=== PATIENT | female | born 1995 ===

== ENCOUNTER 2017-04-17 20:18 | Emergency (ER) | payer MEDICAID ==
[2017-04-17 20:33] VITALS: BP 115/82; PULSE 83; RESP 16; TEMP 99.3; O2SAT 95
[2017-04-17] MEDS ORDERED: Promethazine/Cod 6.25mg-10mg/5ml Syr UD PO STA (21:03)
[2017-04-17] MEDS ORDERED: Albuterol-Ipratrop 3 mg / 0.5 (3 ml) UD IH STA (21:03)
--- NOTE | 2017-04-17 21:04 | ED PDOC ---
Arrival/HPI - General Chief Complaint: Cough, Cold, Congestion Time Seen by Provider: 04/17/17 21:03 Historian: Patient, Parent (mother) - History of Present Illness Narrative History of Present Illness (Text): 04/17/17 21:04 This 22 yo female presents to this ED with her mother c/o cough, nasal congestion, and ear pain x 2 days. Patient noted a mild sore throat. Patient denies cp, sob, fever, recent travel or sick contact. Time/Duration: Other (2 days) Context: Home Past Medical History - Provider Review Nursing Documentation Reviewed: Yes - Psychiatric Hx Substance Use: No Family/Social History - Physician Review Nursing Documentation Reviewed: Yes Family/Social History: Other (non-contributory) Smoking Status: Heavy Smoker > 10 Cigarettes Daily Hx Alcohol Use: No Hx Substance Use: No Allergies/Home Meds Allergies/Adverse Reactions: Allergies No Known Allergies Allergy (Verified 04/17/17 20:33) Review of Systems - Review of Systems Constitutional: Normal. absent: Fatigue, Weight Change, Fevers Eyes: Normal ENT: Sore Throat, Rhinorrhea. absent: Epistaxis Respiratory: Cough. absent: SOB Cardiovascular: Normal Gastrointestinal: Normal. absent: Abdominal Pain, Nausea, Vomiting Genitourinary Female: Normal. absent: Dysuria, Frequency, Hematuria, Vaginal Bleeding Musculoskeletal: Normal. absent: Back Pain Skin: Normal. absent: Rash, Pruritis Neurological: Normal. absent: Headache, Dizziness, Focal Weakness Endocrine: Normal Hemo/Lymphatic: Normal Psychiatric: Normal Physical Exam Vital Signs Temp Pulse Resp BP Pulse Ox 04/17/17 20:30 99.3 F 83 16 115/82 95 Temperature: Afebrile Blood Pressure: Normal Pulse: Regular Respiratory Rate: Normal Appearance: Positive for: Well-Appearing, Non-Toxic, Comfortable Pain Distress: None Mental Status: Positive for: Alert and Oriented X 3 - Systems Exam Head: Present: Atraumatic, Normocephalic Pupils: Present: PERRL Extroacular Muscles: Present: EOMI Conjunctiva: Present: Normal Mouth: Present: Moist Mucous Membranes Neck: Present: Normal Range of Motion Respiratory/Chest: Present: Clear to Auscultation, Good Air Exchange. No: Respiratory Distress, Accessory Muscle Use, Wheezes, Decreased Breath Sounds, Rales, Retracting, Rhonchi, Tachypneic Cardiovascular: Present: Regular Rate and Rhythm, Normal S1, S2. No: Murmurs Abdomen: Present: Normal Bowel Sounds. No: Tenderness, Distention, Peritoneal Signs Back: Present: Normal Inspection Upper Extremity: Present: Normal Inspection. No: Cyanosis, Edema Lower Extremity: Present: Normal Inspection. No: Edema Neurological: Present: GCS=15, CN II-XII Intact, Speech Normal, Motor Func Grossly Intact, Normal Sensory Function, Normal Cerebellar Funct, Gait Normal Skin: Present: Warm, Dry, Normal Color. No: Rashes Psychiatric: Present: Alert, Oriented x 3, Normal Insight, Normal Concentration Medical Decision Making ED Course and Treatment: 04/17/17 21:18 I reviewed the benefits vs risk of taking Decadron IM. She understood Decadron could cause AVN, osteoporosis, DM, glaucoma, allergies. Patient and mother insisted to have this medication. 04/17/17 22:12 Re-evaluation. Patient feels better. Discussed results and plan with patient who expresses understanding. All questions answered and there is agreement with the plan to discharge home with instructions. Patient stable for discharge. Return if symptoms persist or worse Lungs CTA b/l, no wheezing or rhonchi. 04/17/17 22:13 Smoking Cessation Counseling: The patient was counseled as to the multiple risks to his/her health from continued use of tobacco products. It was explained that continuing to smoke may lead to multiple short and skilled nursing negative health consequences, including but not limited to mouth/esophageal/lung cancer, COPD, and heart disease. She states she understands these risks, and also understands the options and resources available to her to help him/her stop smoking. Nicotine replacement therapy, local hotlines, and local resources were discussed as viable options for helping her stop her tobacco use. The total time spent counseling the patient regarding tobacco cessation was 10 minutes. Re-evaluation Time: 22:12 Reassessment Condition: Re-examined, Improved - Lab Interpretations I have reviewed the lab results: Yes Interpretation: No clinic. lab abnormalty (POC urine was negative) - Medication Orders Current Medication Orders: Discontinued Medications Albuterol/Ipratropium (Duoneb 3 Mg/0.5 Mg (3 Ml) Ud) 6 ml IH STAT STA Stop: 04/17/17 21:04 Last Admin: 04/17/17 21:30 Dose: 6 ml Dexamethasone (Decadron Inj) 10 mg IM STAT STA Stop: 04/17/17 21:04 Last Admin: 04/17/17 21:30 Dose: 10 mg Promethazine HCl/Codeine (Phenergan/Codeine Oral Syrup) 5 ml PO STAT STA Stop: 04/17/17 21:04 Last Admin: 04/17/17 21:30 Dose: 5 ml Disposition/Present on Arrival - Present on Arrival Any Indicators Present on Arrival: No History of DVT/PE: No History of Uncontrolled Diabetes: No Urinary Catheter: No History of Decub. Ulcer: No History Surgical Site Infection Following: None - Disposition Have Diagnosis and Disposition been Completed?: Yes Diagnosis: Acute bronchitis, Tobacco abuse Disposition: HOME/ ROUTINE Disposition Time: 22:13 Patient Plan: Discharge Condition: GOOD Discharge Instructions (ExitCare): How to Stop Smoking (ED), Acute Bronchitis ( ED), How to Quit Using Smokeless Tobacco (ED) Additional Instructions: Call private doctor for follow up visit in 1-2 days. Take medication as instructed. Return to emergency if symptoms worsen. QUIT SMOKING. Prescriptions: Albuterol HFA [Ventolin HFA 90 mcg/actuation (8 g)] 2 puff IH [id number] PRN #120 puff PRN Reason: Shortness Of Breath Azithromycin [Z-Nhan] 250 mg PO DAILY #6 tab Promethazine [Phenergan Syrup] 5 ml PO Q4H PRN #180 ml PRN Reason: Cough Referrals: PCP,NO [Primary Care Provider] - Follow up with primary [facility] [Outside] - Follow up with primary [facility] [Outside] - Follow up with primary Forms: [employer] ([place]), WORK NOTE
== END 2017-04-17 22:36 | disposition home or self-care (01) ==
LOC: ED 20:18
DX: J20.9 Acute bronchitis, unspecified (principal); Z72.0 Tobacco use
CPT/HCPCS: 96372; 99283; J1100

== ENCOUNTER 2017-11-24 18:40 | Emergency (ER) | payer MEDICAID ==
[2017-11-24 19:26] VITALS: TEMP 99.4; O2SAT 98
[2017-11-24] MEDS ORDERED: Sodium Chloride 0.9% 1,000 ML IV STA (19:33)
--- NOTE | 2017-11-24 19:41 | ED PDOC ---
Arrival/HPI <Shaw Sethi - Last Filed: 11/25/17 00:28> - General Historian: Patient - History of Present Illness Time/Duration: Other (last night) Symptom Onset: Sudden Symptom Course: Intermittent Quality: Cramping Severity Level: 4 <Dina Wade - Last Filed: 11/25/17 09:03> - General Chief Complaint: Abdominal Pain Time Seen by Provider: 11/24/17 18:44 - History of Present Illness Narrative History of Present Illness (Text): 11/24/17 19:38 22-year-old female presents today with epigastric and periumbilical abdominal pain that started last night after eating pasta and shrimp. Patient complaining of nausea no vomiting or diarrhea. Patient states the pain is crampy and intermittent. Patient denies radiation of pain to the back. Patient denies any urinary symptoms. Patient denies vaginal bleeding or vaginal discharge. Patient denies fevers or chills. No medications have been taken for pain at home. Patient denies prior abdominal surgeries. Denies dizziness or weakness. No other complaints (Dina Wade) Past Medical History - Provider Review Nursing Documentation Reviewed: Yes - Travel History Have you recently traveled outside [place] w/in the past 3 mons?: No - Tetanus Immunization Tetanus Immunization: Unknown - Cardiac Hx Cardiac Disorders: No - Pulmonary Hx Respiratory Disorders: No - Neurological Hx Neurological Disorder: No - HEENT Hx HEENT Disorder: Yes Other/Comment: HEARING DEFICIT - Renal Hx Renal Disorder: No - Endocrine/Metabolic Hx Endocrine Disorders: No - Hematological/Oncological Hx Blood Disorders: No - Integumentary Hx Dermatological Disorder: No - Musculoskeletal/Rheumatological Hx Musculoskeletal Disorders: No - Gastrointestinal Hx Gastrointestinal Disorders: No - Genitourinary/Gynecological Hx Genitourinary Disorders: Yes Other/Comment: AB - Psychiatric Hx Psychophysiologic Disorder: No Hx Substance Use: Yes (CANNABIS) - Surgical History Other/Comment: AB <Dina Wade - Last Filed: 11/25/17 09:03> Family/Social History - Physician Review Nursing Documentation Reviewed: Yes Family/Social History: Unknown Family HX Smoking Status: Heavy Smoker > 10 Cigarettes Daily Hx Alcohol Use: Yes Frequency of alcohol use: Socially Hx Substance Use: Yes (CANNABIS) <Dina Wade - Last Filed: 11/25/17 09:03> Allergies/Home Meds <Shaw Sethi - Last Filed: 11/25/17 00:28> <Dina Wade - Last Filed: 11/25/17 09:03> Allergies/Adverse Reactions: Allergies No Known Allergies Allergy (Verified 11/24/17 19:11) Home Medications: Home Meds Medication Instructions Recorded Confirmed No Known Home Med 11/24/17 11/24/17 Review of Systems - Review of Systems Constitutional: absent: Fatigue, Fevers Respiratory: absent: SOB, Cough Cardiovascular: absent: Chest Pain, Palpitations Gastrointestinal: Abdominal Pain, Nausea. absent: Constipation, Diarrhea, Vomiting Genitourinary Female: absent: Dysuria, Frequency, Hematuria, Vaginal Discharge Musculoskeletal: absent: Arthralgias, Back Pain, Neck Pain Skin: absent: Rash, Pruritis Neurological: absent: Headache, Dizziness Psychiatric: absent: Anxiety, Depression, Suicidal Ideation <Dina Wade - Last Filed: 11/25/17 09:03> Physical Exam Vital Signs Reviewed: Yes Temperature: Afebrile Blood Pressure: Normal Pulse: Regular Respiratory Rate: Normal Appearance: Positive for: Well-Appearing, Non-Toxic, Comfortable Pain Distress: None Mental Status: Positive for: Alert and Oriented X 3 - Systems Exam Head: Present: Atraumatic Mouth: Present: Moist Mucous Membranes Neck: Present: Normal Range of Motion Respiratory/Chest: Present: Clear to Auscultation, Good Air Exchange. No: Respiratory Distress, Accessory Muscle Use Cardiovascular: Present: Regular Rate and Rhythm, Normal S1, S2. No: Murmurs Abdomen: Present: Tenderness (minimal epigastric and periumbilical tenderness). No: Distention, Peritoneal Signs, Rebound, Guarding Back: Present: Normal Inspection. No: CVA Tenderness, Midline Tenderness, Paraspinal Tenderness Upper Extremity: Present: Normal ROM Lower Extremity: Present: Normal ROM Neurological: Present: GCS=15, Speech Normal Skin: Present: Warm, Dry, Normal Color. No: Rashes Psychiatric: Present: Alert, Oriented x 3 <Dina Wade - Last Filed: 11/25/17 09:03> Vital Signs Temp Pulse Resp BP Pulse Ox 11/25/17 00:29 72 18 119/77 98 11/24/17 19:12 99.4 F 77 16 121/78 98 Medical Decision Making - Lab Interpretations I have reviewed the lab results: Yes <Shaw Sethi - Last Filed: 11/25/17 00:28> <Dina Wade - Last Filed: 11/25/17 09:03> ED Course and Treatment: 11/25/17 00:17 Pt refuses to stay for CT scan results. States she does not want to wait for CT results and wants to go home. Pt will sign out against medical advice. Leaving Against Medical Advice (AMA): The patient is choosing to leave against medical advice. I have personally explained to the patient that choosing to do so may result in permanent bodily harm or . I have discussed at great length that without further evaluation and monitoring there may be unforeseen circumstances and/or deterioration causing permanent bodily harm or as a result of their choice. The patient is alert, oriented, and shows the mental capacity to make clear decisions regarding the patients health care at this time. The patient continues to wish to leave against medical advice. In light of the patients decision to leave against medical advice, patient is aware of the importance to following up as instructed. The patient has been advised that they should return to the emergency room immediately if they change their mind at any time, or if their condition begins to change or worsen in any way.. 11/25/17 00:28 CT Abdomen and Pelvis shows: Lung bases: Unremarkable. No mass. No consolidation. ABDOMEN: Liver: Unremarkable. No mass. Gallbladder and bile ducts: Unremarkable. No calcified stones. No ductal dilation. Pancreas: Unremarkable. No mass. No ductal dilation. Spleen: Unremarkable. No splenomegaly. Adrenals: Unremarkable. No mass. Kidneys and ureters: Unremarkable. No solid mass. No hydronephrosis. Stomach and bowel: Unremarkable. No obstruction. No mucosal thickening. Appendix: No findings to suggest acute appendicitis. Normal appendix. PELVIS: Bladder: Unremarkable. No mass. Reproductive: Unremarkable as visualized. Low-density structure in the left pelvis measuring 1.2 cm probably an involuting ovarian cyst or follicle. ABDOMEN and PELVIS: Intraperitoneal space: There is a small amount of free pelvic fluid present. No free air. Bones/joints: No acute fracture. No dislocation. Soft tissues: Unremarkable. Vasculature: Unremarkable. No abdominal aortic aneurysm. Lymph nodes: Unremarkable. No enlarged lymph nodes. IMPRESSION: Small pelvic free fluid. Otherwise, unremarkable CT of the abdomen and pelvis. ( Shaw Sethi) 11/24/17 19:40 Patient is nontoxic well appearing with stable vital signs presenting with epigastric and periumbilical abdominal pain CBC CMP Amylase Lipase Urinalysis: gc/chlaymdia; pending; pt refused prophylactic treatment. Patient without any vaginal discharge on vaginal examination. CAT scan: 11/24/17 20:33 case signed out to dr. sethi pending labs/ct/UA and re-evaluation and disposition; (Dina Wade) - Lab Interpretations Lab Results: 11/24/17 20:13 11/24/17 20:13 Lab Results 11/24/17 20:13: WBC 7.0, RBC 4.43, Hgb 12.4, Hct 39.0, MCV 88.0, MCH 28.0, MCHC 31.8, RDW 13.8, Plt Count 370, MPV 8.3, Gran % 68.3 H, Lymph % (Auto) 23.9, [place] % (Auto) 5.0, Eos % (Auto) 2.4, Baso % (Auto) 0.4, Gran # 4.77, Lymph # ( Auto) 1.7, [place] # (Auto) 0.4, Eos # (Auto) 0.2, Baso # (Auto) 0.03 11/24/17 20:13: Sodium 139, Potassium 4.0, Chloride 105, Carbon Dioxide 27, Anion Gap 11, BUN 12, Creatinine 0.8, Est GFR ( Amer) > 60, Est GFR (Non- Af Amer) > 60, Random Glucose 99, Calcium 9.4, Total Bilirubin 0.3, AST 16, ALT 9, Alkaline Phosphatase 79, Total Protein 7.2, Albumin 3.7, Globulin 3.6, Albumin/Globulin Ratio 1.0 L, Amylase 70, Lipase 38 11/24/17 20:13: Urine Color Yellow, Urine Appearance Clear, Urine pH 6.0, Ur Specific [place] 1.025, Urine Protein Negative, Urine Glucose (UA) Negative, Urine Ketones Trace H, Urine Blood Negative, Urine Nitrate Negative, Urine Bilirubin Negative, Urine Urobilinogen 0.2, Ur Leukocyte Esterase Negative - RAD Interpretation Radiology Orders: 11/24/17 19:32 ABD & PELVIS IV CONTRAST ONLY [CT] Stat - Medication Orders Current Medication Orders: Discontinued Medications Famotidine (Pepcid) 20 mg IVP STAT STA Stop: 11/24/17 19:34 Last Admin: 11/24/17 20:20 Dose: 20 mg IVP Administration Document 11/24/17 20:20 SS (Rec: 11/24/17 20:21 SS [id number]) Charges for Administration # of IVP Administrations 1 Sodium Chloride (Sodium Chloride 0.9%) 1,000 mls @ 999 mls/hr IV .Q1H1M STA Stop: 11/24/17 20:33 Last Admin: 11/24/17 20:21 Dose: 999 mls/hr eMAR Start Stop Document 11/24/17 20:21 SS (Rec: 11/24/17 20:21 SS [id number]) Intravenous Solution Start Date 11/24/17 Start Time 20:21 End Date 11/24/17 End time 21:21 Total Infusion Time 60 Disposition/Present on Arrival <Shaw Sethi - Last Filed: 11/25/17 00:28> - Present on Arrival Any Indicators Present on Arrival: No History of DVT/PE: No History of Uncontrolled Diabetes: No Urinary Catheter: No History of Decub. Ulcer: No History Surgical Site Infection Following: None - Disposition Have Diagnosis and Disposition been Completed?: Yes Disposition Time: 12:15 Patient Plan: Other (AMA) <Dina Wade - Last Filed: 11/25/17 09:03> - Disposition Diagnosis: Abdominal pain Disposition: AGAINST MEDICAL ADVICE Condition: UNKNOWN Referrals: Venkat Mariscal, DNP, [employer] [Primary Care Provider] - Follow up with primary Forms: [employer] ([place]), WORK NOTE
[2017-11-24 20:29] LABS: BASO # 0.03 K/mm3 (0.0-2.0); BASO % 0.4 % (0.0-3.0); EOS # 0.2 (0.0-0.7); EOS % 2.4 % (1.5-5.0); GRAN # 4.77 (1.4-6.5); GRAN % 68.3 % (50.0-68.0); HEMOGLOBIN 12.4 g/dL (12.0-16.0); LYMPH # 1.7 (1.2-3.4); LYMPH % 23.9 % (22.0-35.0); MEAN CORPUSCULAR HGB CONC 31.8 g/dl (31.0-37.0); MEAN PLATELET VOLUME 8.3 fl (7.0-11.0); MONO # 0.4 (0.1-0.6); RBC 4.43 10^6/uL (3.5-6.1); RED CELL DISTRIBUTION WIDTH 13.8 % (11.5-14.5)
[2017-11-24 20:31] LABS: URINE APPEARANCE CLEAR (CLEAR); URINE BILIRUBIN NEGATIVE (NEGATIVE); URINE BLOOD NEGATIVE (NEGATIVE); URINE COLOR YELLOW (YELLOW); URINE GLUCOSE (UA) NEGATIVE (NEGATIVE); URINE LEUKOCYTE ESTERASE NEGATIVE Leu/uL (NEGATIVE); URINE PROTEIN NEGATIVE mg/dL (<30 mg/dL); URINE UROBILINOGEN 0.2 E.U./dL (<1 E.U./dL)
[2017-11-24 20:35] LABS: ALBUMIN 3.7 g/dL (3.0-4.8); ALT/SGPT 9 U/L (7-56); AMYLASE 70 U/L (35-125); AST/SGOT 16 U/L (14-36); BLOOD UREA NITROGEN 12 mg/dL (7-21); CALCIUM 9.4 mg/dL (8.4-10.5); GFR AFRICAN-AMERICAN > 60; GFR NON-AFRICAN AMERICAN > 60; LIPASE 38 U/L (23-300)
[2017-11-24] MEDS ORDERED: Iohexol 350 MG/100 ML VIAL ONE (22:49)
--- NOTE | 2017-11-25 00:26 | CT ---
EXAM: CT Abdomen and Pelvis With Intravenous Contrast CLINICAL HISTORY: 22 years old, female; Pain; Abdominal pain; Localized; Other: Mid abdominal pain; Additional info: Abd pain TECHNIQUE: Axial computed tomography images of the abdomen and pelvis with intravenous contrast. All CT scans at this facility use one or more dose reduction techniques, viz.: automated exposure control; ma/kV adjustment per patient size (including targeted exams where dose is matched to indication; i.e. head); or iterative reconstruction technique. Coronal and sagittal reformatted images were created and reviewed. CONTRAST: 94 mL of omnipaque 350 administered intravenously. COMPARISON: No relevant prior studies available. FINDINGS: Lung bases: Unremarkable. No mass. No consolidation. ABDOMEN: Liver: Unremarkable. No mass. Gallbladder and bile ducts: Unremarkable. No calcified stones. No ductal dilation. Pancreas: Unremarkable. No mass. No ductal dilation. Spleen: Unremarkable. No splenomegaly. Adrenals: Unremarkable. No mass. Kidneys and ureters: Unremarkable. No solid mass. No hydronephrosis. Stomach and bowel: Unremarkable. No obstruction. No mucosal thickening. Appendix: No findings to suggest acute appendicitis. Normal appendix. PELVIS: Bladder: Unremarkable. No mass. Reproductive: Unremarkable as visualized. Low-density structure in the left pelvis measuring 1.2 cm probably an involuting ovarian cyst or follicle. ABDOMEN and PELVIS: Intraperitoneal space: There is a small amount of free pelvic fluid present. No free air. Bones/joints: No acute fracture. No dislocation. Soft tissues: Unremarkable. Vasculature: Unremarkable. No abdominal aortic aneurysm. Lymph nodes: Unremarkable. No enlarged lymph nodes. IMPRESSION: Small pelvic free fluid. Otherwise, unremarkable CT of the abdomen and pelvis.
[2017-11-25 00:30] VITALS: BP 119/77; PULSE 72; RESP 18
== END 2017-11-25 00:30 | disposition left against medical advice (07) ==
LOC: ED 18:40
DX: R10.9 Unspecified abdominal pain (principal)
CPT/HCPCS: 74177; 80053; 81003; 82150; 83690; 85025; 87491; 87591; 96361; 96374; 99282; J7040; Q9967

== ENCOUNTER 2017-12-25 16:21 | Emergency (ER) | payer MEDICAID ==
[2017-12-25] MEDS ORDERED: Lidocaine 1%/Epinephrine 1:100000 30 ml vial IJ STA (16:52)
[2017-12-25 16:54] VITALS: RESP 18; TEMP 99; O2SAT 99
[2017-12-25] MEDS ORDERED: Lidocaine 1% Inj (20ml) ONE (17:07)
--- NOTE | 2017-12-25 17:37 | ED PDOC ---
Arrival/HPI - General Chief Complaint: Abnormal Skin Integrity Time Seen by Provider: 12/25/17 16:31 - History of Present Illness Narrative History of Present Illness (Text): 12/25/17 17:26 Patient is a 22 year old female who presents to the ED complaining of painful abscess under her right arm. Patient says she had this for the first time 3-4 years ago. Patient said at that time she popped it and it went away. Then it reappeared 2 months ago. Patient noticed it starting to drain purulent material about 3 weeks ago. Patient says it is now painful and she was also feeling hot and sweaty which she though she may be developing a fever, although she did not take her temperature. Patient was told by a family member to come get it checked out in the ED, so she decided to do so. (Rebecca Figueroa) Past Medical History - Past History Past History: No Previous - Tetanus Immunization Tetanus Immunization: Unknown - Cardiac Hx Cardiac Disorders: No - Pulmonary Hx Respiratory Disorders: No - Neurological Hx Neurological Disorder: No - HEENT Hx HEENT Disorder: Yes Other/Comment: HEARING DEFICIT - Renal Hx Renal Disorder: No - Endocrine/Metabolic Hx Endocrine Disorders: No - Hematological/Oncological Hx Blood Disorders: No - Integumentary Hx Dermatological Disorder: No - Musculoskeletal/Rheumatological Hx Musculoskeletal Disorders: No - Gastrointestinal Hx Gastrointestinal Disorders: No - Genitourinary/Gynecological Hx Genitourinary Disorders: Yes Other/Comment: AB - Psychiatric Hx Psychophysiologic Disorder: No Hx Substance Use: No - Surgical History Other/Comment: AB Family/Social History Family/Social History: Neoplasm/Cancer (breast and lung) Smoking Status: Light Smoker < 10 Cigarettes Daily Hx Alcohol Use: Yes Frequency of alcohol use: Socially Hx Substance Use: No Allergies/Home Meds Allergies/Adverse Reactions: Allergies No Known Allergies Allergy (Verified 12/25/17 16:37) Home Medications: Home Meds Medication Instructions Recorded Confirmed No Known Home Med 11/24/17 12/25/17 Review of Systems - Physician Review All systems were reviewed & negative as marked: Yes - Review of Systems Constitutional: Other (sweats). absent: Fatigue Respiratory: Normal. absent: SOB, Cough Cardiovascular: Normal. absent: Chest Pain, Palpitations, Edema Gastrointestinal: Normal. absent: Abdominal Pain, Constipation, Diarrhea, Nausea, Vomiting Musculoskeletal: Normal. absent: Arthralgias, Joint Swelling, Myalgias Skin: Abscess (right axilla draining purulent material) Neurological: Dizziness. absent: Headache Physical Exam Temperature: Afebrile Appearance: Positive for: Well-Appearing, Non-Toxic, Comfortable Pain Distress: Mild Mental Status: Positive for: Alert and Oriented X 3 - Systems Exam Head: Present: Atraumatic, Normocephalic Extroacular Muscles: Present: EOMI Conjunctiva: Present: Normal Mouth: Present: Moist Mucous Membranes Neck: Present: Normal Range of Motion Respiratory/Chest: Present: Clear to Auscultation, Good Air Exchange. No: Respiratory Distress, Accessory Muscle Use Cardiovascular: Present: Regular Rate and Rhythm, Normal S1, S2. No: Murmurs Abdomen: No: Tenderness, Distention, Peritoneal Signs Breast/Axillary: Present: Fluctuance (right axilla), Swelling (right axilla), Tender to Palpation (right axilla) Upper Extremity: Present: Normal Inspection. No: Cyanosis, Edema, Swelling, Erythema Lower Extremity: Present: Normal Inspection. No: Edema Neurological: Present: GCS=15 Skin: Present: Warm, Abscess (right axilla) Lymphatic: No: Cervical Adenopathy Psychiatric: Present: Alert, Oriented x 3, Normal Insight, Normal Concentration Vital Signs Temp Pulse Resp BP Pulse Ox 12/25/17 16:33 99 F 89 18 119/83 99 Medical Decision Making ED Course and Treatment: 12/25/17 17:56 Seen and examined with the resident. Our history and physical exam reveals an obese young woman with a right axillary abscess. Assisted the resident with incision and drainage. Patient will return for packing removal. (Panda Gutierrez) 12/25/17 17:47 Right axillary abscess drainage done at bedside. Patient's right axilla sterilized with betadine and local anesthesia done with 1% lidocaine with epinephrine. An 11 blade was used to puncture the abscess and was then undermined with a nichole. Abscess was packed with 1/4 in iodoform packing, then cleaned and bandaged by the nurse. (Rebecca Figueroa) - Medication Orders Current Medication Orders: Discontinued Medications Lidocaine/Epinephrine (Lidocaine 1%/Epinephrine 1:988438 30 Ml) 10 ml IJ STAT STA Stop: 12/25/17 16:53 - PA / CERTIFIED MIDWIFE / Resident Statement / has reviewed & agrees with the documentation as recorded. MD/DO has examined the patient and agrees with the treatment plan. Disposition/Present on Arrival - Present on Arrival Any Indicators Present on Arrival: No History of DVT/PE: No History of Uncontrolled Diabetes: No Urinary Catheter: No History of Decub. Ulcer: No History Surgical Site Infection Following: None - Disposition Have Diagnosis and Disposition been Completed?: Yes Disposition Time: 17:51 - Disposition Diagnosis: Abscess of axilla, right Patient Problems: Current Active Problems Problem Status Onset Abscess of axilla, right Acute Condition: STABLE Discharge Instructions (ExitCare): Skin Abscess, Abscess Incision and Drainage Additional Instructions: Please return in 2 days to have the packing removed. Please follow up with a general surgeon (Dr. Norton) to prevent future recurrences of the abscess. Please follow up with your primary care physician next week for further coordination of your care. Referrals: Lukas Norton MD [Staff Provider] - Follow up with primary Forms: [employer] (Italian), WORK NOTE Procedure: Blank - Time Time Performed: 17:30 - Time Out Time Out: Side verified, Site verified - Procedure Procedure:: Right axillary abscess drainage - Consent obtained: Consent obtained: Verbal - Performed by: Performed by:: Attending physician - Indications Indications(s):: Right axillary abscess - Contraindications: Contraindications:: None - Anesthetic Technique Anesthetic Technique: Local - Topical: Local/Regional Anesthetic:: Lidocaine 1% w/epi - Patient Position Patient Position:: Supine - Location Location: Right (Axilla) - Description Discription of Procedure: 12/25/17 - Result Result: Successful - Post-Procedure Post-procedure:: Dressing applied - Patient Tolerated Procedure Patient Tolerated Procedure:: Well
[2017-12-25 18:05] VITALS: BP 130/70; PULSE 78
== END 2017-12-25 18:10 | disposition home or self-care (01) ==
LOC: ED 16:21
DX: L02.411 Cutaneous abscess of right axilla (principal); F17.210 Nicotine dependence, cigarettes, uncomplicated

== ENCOUNTER 2017-12-27 17:18 | Emergency (ER) | payer MEDICAID ==
[2017-12-27 18:00] VITALS: RESP 18; O2SAT 100
[2017-12-27] MEDS ORDERED: Tmp-Smz 800 mg-160 mg DS Tab PO STA (18:18)
--- NOTE | 2017-12-27 18:21 | ED PDOC ---
Arrival/HPI - General Chief Complaint: Wound Check Time Seen by Provider: 12/27/17 18:17 Historian: Patient - History of Present Illness Narrative History of Present Illness (Text): 12/27/17 18:18 22yr old female presents today for wound check of abscess to the right axilla. Patient was seen in the hospital 2 days ago and had incision and drainage of an abscess to the right axilla. Patient presents today for reevaluation. She denies fevers or chills. No chest pain or shortness of breath. Patient states she is still having pain to the site. She denies numbness or tingling in the extremities. No medications have been taken at home. No other complaints Past Medical History - Provider Review Nursing Documentation Reviewed: Yes - Travel History Have you recently traveled outside [place] w/in the past 3 mons?: No - Past History Past History: No Previous - Infectious Disease Hx of Infectious Diseases: None - Tetanus Immunization Tetanus Immunization: Unknown - Cardiac Hx Cardiac Disorders: No - Pulmonary Hx Respiratory Disorders: No - Neurological Hx Neurological Disorder: No - HEENT Hx HEENT Disorder: Yes Other/Comment: HEARING DEFICIT - Renal Hx Renal Disorder: No - Endocrine/Metabolic Hx Endocrine Disorders: No - Hematological/Oncological Hx Blood Disorders: No - Integumentary Hx Dermatological Disorder: No - Musculoskeletal/Rheumatological Hx Musculoskeletal Disorders: No - Gastrointestinal Hx Gastrointestinal Disorders: No - Genitourinary/Gynecological Hx Genitourinary Disorders: Yes Other/Comment: AB - Psychiatric Hx Psychophysiologic Disorder: No Hx Substance Use: No - Surgical History Other/Comment: AB Family/Social History - Physician Review Nursing Documentation Reviewed: Yes Family/Social History: Unknown Family HX Smoking Status: Heavy Smoker > 10 Cigarettes Daily Hx Alcohol Use: No Hx Substance Use: No Allergies/Home Meds Allergies/Adverse Reactions: Allergies No Known Allergies Allergy (Verified 12/27/17 18:12) Review of Systems - Review of Systems Constitutional: absent: Fatigue, Fevers Respiratory: absent: SOB, Cough Cardiovascular: absent: Chest Pain, Palpitations Gastrointestinal: absent: Abdominal Pain, Nausea, Vomiting Musculoskeletal: absent: Back Pain, Neck Pain Skin: Abscess Neurological: absent: Headache, Dizziness Psychiatric: absent: Anxiety, Depression Physical Exam Vital Signs Reviewed: Yes Vital Signs Temp Pulse Resp BP Pulse Ox 12/27/17 17:57 98.9 F 92 H 18 130/80 100 Temperature: Afebrile Blood Pressure: Normal Pulse: Regular Respiratory Rate: Normal Appearance: Positive for: Well-Appearing, Non-Toxic, Comfortable Pain Distress: None Mental Status: Positive for: Alert and Oriented X 3 - Systems Exam Head: Present: Atraumatic Mouth: Present: Moist Mucous Membranes Respiratory/Chest: Present: Clear to Auscultation Cardiovascular: Present: Regular Rate and Rhythm Breast/Axillary: Present: Swelling, Tender to Palpation (right axilla; there is a large area of tenderness with a small area of induration with central wound with packing in place; + discharge noted; no erythema; ). No: Erythema Upper Extremity: Present: Normal ROM Neurological: Present: GCS=15, Speech Normal Skin: Present: Warm, Dry Psychiatric: Present: Alert, Oriented x 3 Medical Decision Making ED Course and Treatment: 12/27/17 18:24 Patient is nontoxic well-appearing in no distress. Vital signs are stable. packing removed; discharge still noted; using sterile technique; wound was repacked with 1/4in sterile packing. dressing applied. bactrim and keflex given pO Patient was advised to use warm compresses frequently and was advised to return to the emergency room in 2 days for packing removal. advised taking abx as prescribed. return immediately if symptoms worsen persist or if new symptoms develop. Patient was advised to follow-up with a surgeon within the next 2 days. Patient verbalizes understanding of discharge instructions and need for immediate followup. all aspects of this case were discussed the attending of record. Impression: Abscess, axilla, wound check Motrin one tablet every 6 hours as needed for pain keflex; 1 capsule 4 times daily x 7 days. Bactrim DS: One tablet twice daily x7 days Warm compresses frequently Return in 2 days for packing removal and wound check Follow up with the surgeon within the next 2 days. Follow up with the primary care physician within the next 2 days. Return immediately if symptoms worsen persist or if new symptoms develop: High fevers, increasing pain, increasing redness, swelling or if any other concerning symptoms develop. Disposition/Present on Arrival - Present on Arrival Any Indicators Present on Arrival: No History of DVT/PE: No History of Uncontrolled Diabetes: No Urinary Catheter: No History of Decub. Ulcer: No History Surgical Site Infection Following: None - Disposition Have Diagnosis and Disposition been Completed?: Yes Diagnosis: Visit for wound check, Abscess, axilla Disposition: HOME/ ROUTINE Disposition Time: 18:21 Patient Plan: Discharge Condition: GOOD Discharge Instructions (ExitCare): Cat (ANAIS) Additional Instructions: Motrin one tablet every 6 hours as needed for pain keflex; 1 capsule 4 times daily x 7 days. Bactrim DS: One tablet twice daily x7 days Warm compresses frequently Return in 2 days for packing removal and wound check Follow up with the surgeon within the next 2 days. Follow up with the primary care physician within the next 2 days. Return immediately if symptoms worsen persist or if new symptoms develop: High fevers, increasing pain, increasing redness, swelling or if any other concerning symptoms develop. Prescriptions: Cephalexin [Keflex] 500 mg PO QID #28 capsule Sulfamethoxazole/Trimethoprim [Bactrim DS 800 mg-160 mg] 1 tab PO BID #14 tab Referrals: Venkat Mariscal, DANE, [employer] [Primary Care Provider] - Follow up with primary Joshua De Leon MD [Medical Doctor] - Follow up with primary [facility] [Outside] - Follow up with primary [facility] [Outside] - Follow up with primary Forms: [facility] (H[place]er), WORK NOTE
[2017-12-28 02:09] VITALS: BP 127/80; PULSE 89; TEMP 98.5
== END 2017-12-27 19:10 | disposition home or self-care (01) ==
LOC: ED 17:18
DX: L02.411 Cutaneous abscess of right axilla (principal); Z51.89 Encounter for other specified aftercare; F17.210 Nicotine dependence, cigarettes, uncomplicated

== ENCOUNTER 2017-12-29 18:12 | Observation (INO) | payer MEDICAID ==
[2017-12-29 18:17] VITALS: BMI 35.0
--- NOTE | 2017-12-29 18:41 | ED PDOC ---
Arrival/HPI - General Time Seen by Provider: 12/29/17 18:19 Historian: Patient - History of Present Illness Narrative History of Present Illness (Text): 12/29/17 18:30 22yo female who present to Emergency department for wound packing. Packing was rechanged on the here and she is back for the packing removal. she denies fever, chills, any other complaint. Past Medical History - Provider Review Nursing Documentation Reviewed: Yes - Past History Past History: No Previous - Infectious Disease Hx of Infectious Diseases: None - Tetanus Immunization Tetanus Immunization: Unknown - Cardiac Hx Cardiac Disorders: No - Pulmonary Hx Respiratory Disorders: No - Neurological Hx Neurological Disorder: No - HEENT Hx HEENT Disorder: Yes Other/Comment: HEARING DEFICIT - Renal Hx Renal Disorder: No - Endocrine/Metabolic Hx Endocrine Disorders: No - Hematological/Oncological Hx Blood Disorders: No - Integumentary Hx Dermatological Disorder: No - Musculoskeletal/Rheumatological Hx Musculoskeletal Disorders: No - Gastrointestinal Hx Gastrointestinal Disorders: No - Genitourinary/Gynecological Hx Genitourinary Disorders: Yes Other/Comment: AB - Psychiatric Hx Psychophysiologic Disorder: No Hx Substance Use: No - Surgical History Other/Comment: AB Family/Social History - Physician Review Nursing Documentation Reviewed: Yes Family/Social History: Unknown Family HX Smoking Status: Heavy Smoker > 10 Cigarettes Daily Hx Alcohol Use: No Hx Substance Use: No Allergies/Home Meds Allergies/Adverse Reactions: Allergies No Known Allergies Allergy (Verified 12/27/17 18:12) Review of Systems - Physician Review All systems were reviewed & negative as marked: Yes - Review of Systems Constitutional: Normal Eyes: Normal ENT: Normal Respiratory: Normal Cardiovascular: Normal Gastrointestinal: Normal Genitourinary Female: Normal Musculoskeletal: Normal Skin: Other (Packin removal) Neurological: Normal Endocrine: Normal Hemo/Lymphatic: Normal Psychiatric: Normal Physical Exam Vital Signs Reviewed: Yes Vital Signs Temp Pulse Resp BP Pulse Ox 12/29/17 18:12 98.0 F 98 H 18 111/73 97 Temperature: Afebrile Blood Pressure: Normal Pulse: Regular Respiratory Rate: Normal Appearance: Positive for: Well-Appearing, Non-Toxic, Comfortable Pain Distress: None Mental Status: Positive for: Alert and Oriented X 3 - Systems Exam Head: Present: Atraumatic, Normocephalic Pupils: Present: PERRL Extroacular Muscles: Present: EOMI Conjunctiva: Present: Normal Mouth: Present: Moist Mucous Membranes Neck: Present: Normal Range of Motion Respiratory/Chest: Present: Clear to Auscultation, Good Air Exchange. No: Respiratory Distress, Accessory Muscle Use Cardiovascular: Present: Regular Rate and Rhythm, Normal S1, S2. No: Murmurs Abdomen: No: Tenderness, Distention, Peritoneal Signs Back: Present: Normal Inspection Upper Extremity: Present: Normal Inspection. No: Cyanosis, Edema Lower Extremity: Present: Normal Inspection. No: Edema Neurological: Present: GCS=15, CN II-XII Intact, Speech Normal Skin: Present: Warm, Dry, Normal Color, Abscess (Approxmately 5 x 5cm indrated abscess noted with surrounding erythema and packing with discharge to right axillae. ). No: Rashes Lymphatic: Present: Axillary Adenopathy (Right node palpable and tender) Psychiatric: Present: Alert, Oriented x 3, Normal Insight, Normal Concentration Medical Decision Making ED Course and Treatment: 12/29/17 20:58 PT was seen here for stated history. Abscess appear deep and indurated. Abscess more like hidra. PT was also seen in Emergency department by Dr. Arteaga and he agreed. PT has been seen in Emergency department twice already for same complaint and needs surgical evacuation of the abscess. Case was [facility] residential property consultant Jose Roberto, he saw pt recommends labs, IV abx. States surgeon will see pt in Emergency department case was [facility] medical collector for admission Dr. Munoz was paged. Plan was [facility] the pt and she agreed. - Lab Interpretations Lab Results: 12/29/17 19:41 12/29/17 19:41 Lab Results 12/29/17 19:41: Sodium 139, Potassium 3.9, Chloride 104, Carbon Dioxide 22, Anion Gap 17, BUN 10, Creatinine 0.8, Est GFR ( Amer) > 60, Est GFR (Non- Af Amer) > 60, Random Glucose 86, Calcium 9.2, Total Bilirubin 0.6, AST 22, ALT 11, Alkaline Phosphatase 94, Total Protein 7.6, Albumin 3.9, Globulin 3.7, Albumin/Globulin Ratio 1.1 12/29/17 19:41: WBC 9.3 D, RBC 4.27, Hgb 11.8 L, Hct 36.2, MCV 84.8 D, MCH 27.6, MCHC 32.6, RDW 13.5, Plt Count 440, MPV 8.0, Gran % 75.1 H, Lymph % (Auto ) 16.1 L, Jack % (Auto) 7.4 H, Eos % (Auto) 1.2 L, Baso % (Auto) 0.2, Gran # 6.98 H, Lymph # (Auto) 1.5, Jack # (Auto) 0.7 H, Eos # (Auto) 0.1, Baso # (Auto ) 0.02 - Medication Orders Current Medication Orders: Discontinued Medications Ceftriaxone Sodium (Rocephin 1 Gram Ivpb) 1 gm in 100 mls @ 200 mls/hr IVPB STAT STA PRN Reason: Protocol Stop: 12/29/17 19:52 Last Admin: 12/29/17 19:49 Dose: 200 mls/hr eMAR Start Stop Document 12/29/17 19:49 LA (Rec: 12/29/17 19:49 LA [id number]) Intravenous Solution Start Date 12/29/17 Start Time 19:49 End Date 12/29/17 End time 20:19 Total Infusion Time 30 Vancomycin HCl (Vancomycin 1gm) 1 gm in 250 mls @ 167 mls/hr IVPB STAT STA PRN Reason: Protocol Stop: 12/29/17 20:51 Disposition/Present on Arrival - Present on Arrival Any Indicators Present on Arrival: No History of DVT/PE: No History of Uncontrolled Diabetes: No Urinary Catheter: No History of Decub. Ulcer: No History Surgical Site Infection Following: None - Disposition Have Diagnosis and Disposition been Completed?: Yes Diagnosis: Hidradenitis suppurativa Disposition: HOSPITALIZED Disposition Time: 21:00 Patient Plan: Admission, Discharge Patient Problems: Current Active Problems Problem Status Onset Abscess packing removal Acute Condition: STABLE Additional Instructions: Follow up with your Doctor Return to Emergency department for any new or worsening symptoms Referrals: Venkat Mariscal, DNP, [employer] [Primary Care Provider] - Follow up with primary
[2017-12-29] MEDS ORDERED: Vancomycin 1gm in NS 250ml 1 GM/250 ML BAG IVPB STA (19:22)
[2017-12-29] MEDS ORDERED: cefTRIAXone 1 gm 1 GM/100 ML BAG IVPB STA (19:23)
[2017-12-29 20:03] LABS: BASO # 0.02 K/mm3 (0.0-2.0); BASO % 0.2 % (0.0-3.0); EOS # 0.1 (0.0-0.7); EOS % 1.2 % (1.5-5.0); GRAN # 6.98 (1.4-6.5); GRAN % 75.1 % (50.0-68.0); HEMOGLOBIN 11.8 g/dL (12.0-16.0); LYMPH # 1.5 (1.2-3.4); LYMPH % 16.1 % (22.0-35.0); MEAN CELL VOLUME 84.8 fl (80.0-105.0); MEAN CORPUSCULAR HEMOGLOBIN 27.6 pg (25.0-35.0); MEAN CORPUSCULAR HGB CONC 32.6 g/dl (31.0-37.0); MONO # 0.7 (0.1-0.6); MONO % 7.4 % (1.0-6.0); RBC 4.27 10^6/uL (3.5-6.1); RED CELL DISTRIBUTION WIDTH 13.5 % (11.5-14.5); WHITE BLOOD COUNT 9.3 10^3/ul (4.5-11.0)
[2017-12-29 20:12] LABS: ALB/GLOB RATIO 1.1 (1.1-1.8); ALBUMIN 3.9 g/dL (3.0-4.8); ALT/SGPT 11 U/L (7-56); AST/SGOT 22 U/L (14-36); BLOOD UREA NITROGEN 10 mg/dL (7-21); CALCIUM 9.2 mg/dL (8.4-10.5); GFR AFRICAN-AMERICAN > 60; GFR NON-AFRICAN AMERICAN > 60
[2017-12-29] MEDS ORDERED: Sodium Chloride 0.9% 1,000 ML IV SCH (21:45)
--- NOTE | 2017-12-29 23:20 | CP.PCM.CON ---
<Michael Gutierrez - Last Filed: 12/30/17 07:24> History of Present Illness - History of Present Illness History of Present Illness: General Surgery Consult Note for Dr. Heath Reason for Consult: Right axillary abscess 22 F with no significant PMH presents to [facility] for right axillary abscess. Patient was seen and evaluated in the ED. Patient came to ED on 12/25. That day, she had I&D with iodoform packing of abscess in Right axilla. She was sent home on oral antibiotics. Patient returned 2 days later for packing change. Purulent matrail was still draining. Packing was changed and she was instructed to continue antibiotics. Patient was asked to return in 2 more days for another packing change. Patient returns to ED today still with purulent drainage and pain despite outpatient therapy. She rates pain as moderate to severe. She describes pain as constant and throbbing located in Right axilla without radiation. Denies alleviating factors but states movement and palpation exacerbates it. Admits to night sweats and subjective fever/chills. Denies chest pain, SOB, palpitations, abdominal pain, nausea/vomiting, diarrhea, constipation, incontinence. PMH: denies Meds: denies ALL: vancomycin PSH: I&D of r axillary abscess FH: denies Social: smokes 2-3 cigrettes per day, social alcohol use, occasional marijuana use, lives with family Review of Systems - Review of Systems All systems: reviewed and no additional remarkable complaints except (as per HPI ) Past Patient History - Infectious Disease Hx of Infectious Diseases: None - Tetanus Immunizations Tetanus Immunization: Unknown - Past Social History Smoking Status: Heavy Smoker > 10 Cigarettes Daily - CARDIAC Hx Cardiac Disorders: No - PULMONARY Hx Respiratory Disorders: No - NEUROLOGICAL Hx Neurological Disorder: No - HEENT Hx HEENT Problems: Yes Other/Comment: HEARING DEFICIT - RENAL Hx Chronic Kidney Disease: No - ENDOCRINE/METABOLIC Hx Endocrine Disorders: No - HEMATOLOGICAL/ONCOLOGICAL Hx Blood Disorders: No - INTEGUMENTARY Hx Dermatological Problems: No - MUSCULOSKELETAL/RHEUMATOLOGICAL Hx Musculoskeletal Disorders: No - GASTROINTESTINAL Hx Gastrointestinal Disorders: No - GENITOURINARY/GYNECOLOGICAL Hx Genitourinary Disorders: Yes Other/Comment: AB - PSYCHIATRIC Hx Psychophysiologic Disorder: No Hx Substance Use: No - SURGICAL HISTORY Other/Comment: AB - ANESTHESIA Hx Anesthesia: No Meds Allergies/Adverse Reactions: Allergies Allergy/AdvReac Type Severity Reaction Status Date / Time vancomycin Allergy ITCHING Verified 12/29/17 22:03 - Medications Medications: Current Medications Acetaminophen (Tylenol 325mg Tab) 650 mg PO Q6 PRN PRN Reason: Pain, moderate (4-7) Famotidine (Pepcid) 20 mg PO BID [facility] Sodium Chloride (Sodium Chloride 0.9%) 1,000 mls @ 100 mls/hr IV .Q10H [id number] Last Admin: 12/29/17 21:50 Dose: 100 mls/hr Physical Exam - Constitutional Appears: No Acute Distress - Head Exam Head Exam: ATRAUMATIC, NORMOCEPHALIC - Eye Exam Eye Exam: EOMI, Normal appearance Pupil Exam: PERRL - ENT Exam ENT Exam: Mucous Membranes Moist - Neck Exam Neck exam: Positive for: Normal Inspection - Respiratory Exam Respiratory Exam: NORMAL BREATHING PATTERN - Cardiovascular Exam Cardiovascular Exam: REGULAR RHYTHM - GI/Abdominal Exam GI & Abdominal Exam: Normal Bowel Sounds, Soft. absent: Tenderness - Extremities Exam Extremities exam: Positive for: normal capillary refill, pedal pulses present. Negative for: calf tenderness Additional comments: Right axilla: previous I&D incision with packing in place draining purulent material, new approximately 5 x 4 cm raised area with indurance and without fluctuance - Back Exam Back exam: absent: CVA tenderness (L), CVA tenderness (R) - Neurological Exam Neurological exam: Alert, CN II-XII Intact, Oriented x3 - Psychiatric Exam Psychiatric exam: Normal Affect, Normal Mood - Skin Skin Exam: Dry, Warm Additional comments: Right axilla: previous I&D incision with packing in place draining purulent material, new approximately 5 x 4 cm raised area with indurance and without fluctuance, no erythema noted Results - Vital Signs Recent Vital Signs: Last Vital Signs Temp 98 F 12/29/17 22:03 Pulse 94 H 12/29/17 22:03 Resp 18 12/29/17 22:03 BP 116/73 12/29/17 22:03 Pulse Ox 100 12/29/17 22:03 - Labs Result Diagrams: 12/29/17 19:41 12/29/17 19:41 Assessment & Plan - Assessment and Plan (Free Text) Assessment: 22 F with right axillary abscess Plan: -failed outpatient therapy -IV antibiotics -IV fluids -Can have regular diet -Analgesics PRN -f/u US of right axilla -Warm compresses -Will need another I&D if fluid present on US and/or theres is fluctuance -Discussed with Dr. Kumar Gutierrez PGY1 <Joey Heath - Last Filed: 01/01/18 12:08> Results - Vital Signs Recent Vital Signs: Last Vital Signs Temp 98.3 F 12/31/17 06:00 Pulse 55 L 12/31/17 06:00 Resp 20 12/31/17 06:00 BP 100/50 L 12/31/17 06:00 Pulse Ox 96 12/31/17 06:00 - Labs Result Diagrams: 12/31/17 06:20 12/31/17 06:20 Labs: Laboratory Results - last 24 hr 12/31/17 07:30 RPR Nonreactive Assessment & Plan - Assessment and Plan (Free Text) Plan: I personally saw and examined the patient at bedside on 12/31/16 with the resident staff and agree with the above assessment and plan. 28 Female with recurrent axillary and suprapubic hidradenitis. Right axilla I+D was repeated this admission and patient symptoms of pain as well as clinical exam improved. She does also have suprapubic hidradenitis - with scarring and one actively draining site; she has known about this for many years but never sought outpatient evaluation/treatment. No need for further surgical intervention at this time. Rec continue Abx course for 10-14 days. We did discuss preventative measure including, weight loss, decreased shaving with razor in problematic areas, wearing loose fitting clothes, keeping those areas dry, proper hygiene, chemical and irritant -free soaps and antiperspirants (aluminum chloride hexhydrate containing). Patient was given my office contact information and instructed follow up in surgical clinic as outpatient. A total of 30 minutes was spent with the patient including examination, counseling and treatment plan.
--- NOTE | 2017-12-29 23:31 | CP.PCM.HP ---
<La Kelly - Last Filed: 12/30/17 06:32> History of Present Illness - History of Present Illness History of Present Illness: PGY-2 h&p for hospitalist service 22 year old female with no significant PMH initally presented to ED a few days ago with painful abscess under her right arm. She states that it appeared about 2 months ago and she noticed it starting to drain purulent material about 3 weeks ago. Patient says it is painful. In previous ED visit patient had I&D with iodoform packing. Patient returned to ED 2 days later and continue to drain purlent material, packing was changed and patient was asked to return in 2 days. At that time she was also given keflex and bactrim. She returned today with continued purulent drainage and pain despite PO abx and I&D. Patient says she had this for the first time 3-4 years ago, at that time she popped it and it went away. Patient reports subjective fever and chills. She denies headache, dizziness, chest pain, sob, abd pain, n/v, diarrhea, dysuria, numbness or tingling, or any other complaint. PMH: denies PSH: Denies social: smokes 2-3 cigrettes per day, social alcohol use, occasional marijuana use allergy: vancomycin family history: denies Present on Admission - Present on Admission Any Indicators Present on Admission: No Review of Systems - Review of Systems All systems: reviewed and no additional remarkable complaints except Past Patient History - Infectious Disease Hx of Infectious Diseases: None - Tetanus Immunizations Tetanus Immunization: Unknown - Past Social History Smoking Status: Heavy Smoker > 10 Cigarettes Daily - CARDIAC Hx Cardiac Disorders: No - PULMONARY Hx Respiratory Disorders: No - NEUROLOGICAL Hx Neurological Disorder: No - HEENT Hx HEENT Problems: Yes Other/Comment: HEARING DEFICIT - RENAL Hx Chronic Kidney Disease: No - ENDOCRINE/METABOLIC Hx Endocrine Disorders: No - HEMATOLOGICAL/ONCOLOGICAL Hx Blood Disorders: No - INTEGUMENTARY Hx Dermatological Problems: No - MUSCULOSKELETAL/RHEUMATOLOGICAL Hx Musculoskeletal Disorders: No - GASTROINTESTINAL Hx Gastrointestinal Disorders: No - GENITOURINARY/GYNECOLOGICAL Hx Genitourinary Disorders: Yes Other/Comment: AB - PSYCHIATRIC Hx Psychophysiologic Disorder: No Hx Substance Use: No - SURGICAL HISTORY Other/Comment: AB - ANESTHESIA Hx Anesthesia: No Meds Home Medications: Home Medication List Medication Instructions Recorded Confirmed Type Doxycycline Monohydrate 100 mg PO BID 7 Days tablet 12/31/17 Rx levoFLOXacin [Levaquin] 500 mg PO DAILY 7 Days tab 12/31/17 Rx Allergies/Adverse Reactions: Allergies Allergy/AdvReac Type Severity Reaction Status Date / Time vancomycin Allergy ITCHING Verified 12/29/17 22:03 Physical Exam - Constitutional Appears: Well, No Acute Distress - Head Exam Head Exam: ATRAUMATIC, NORMOCEPHALIC - Eye Exam Eye Exam: EOMI, Normal appearance - ENT Exam ENT Exam: Mucous Membranes Moist - Respiratory Exam Respiratory Exam: Clear to Auscultation Bilateral, NORMAL BREATHING PATTERN. absent: Decreased Breath Sounds, Rales, Rhonchi, Wheezes, Respiratory Distress, Stridor - Cardiovascular Exam Cardiovascular Exam: REGULAR RHYTHM, +S1, +S2. absent: Bradycardia, Tachycardia , Systolic Murmur - GI/Abdominal Exam GI & Abdominal Exam: Normal Bowel Sounds, Soft. absent: Diminished Bowel Sounds , Distended, Firm, Guarding, Tenderness - Extremities Exam Extremities exam: Positive for: normal inspection. Negative for: pedal edema, tenderness - Neurological Exam Neurological exam: Alert, Oriented x3 - Skin Skin Exam: Dry, Intact, Normal Color, Warm Additional comments: Abscess, right axilla, indurated, mild surrounding erythema and packing with discharge Results - Vital Signs Recent Vital Signs: Last Vital Signs Temp 98 F 12/29/17 23:25 Pulse 93 H 12/29/17 23:25 Resp 18 12/29/17 23:25 BP 115/70 12/29/17 23:25 Pulse Ox 99 12/29/17 23:25 - Labs Result Diagrams: 12/29/17 19:41 12/29/17 19:41 Assessment & Plan - Assessment and Plan (Free Text) Assessment: 22 year old female with no significant PMH initally presented to ED a few days ago with painful abscess under her right arm. Plan: 1. abscess - afebrile without leukocytosis - patient received IV ceftriaxone and vancomycin in ED, patient developed redness and pruritus with vancomycin - surgery consulted, recommend US - ID consulted DVT ppx- ambulation as tolerated GI ppx- pepcid <Holli Munoz - Last Filed: 01/01/18 00:05> Results - Vital Signs Recent Vital Signs: Last Vital Signs Temp 98.3 F 12/31/17 06:00 Pulse 55 L 12/31/17 06:00 Resp 20 12/31/17 06:00 BP 100/50 L 12/31/17 06:00 Pulse Ox 96 12/31/17 06:00 - Labs Result Diagrams: 12/31/17 06:20 12/31/17 06:20 Labs: Laboratory Results - last 24 hr 12/30/17 12/31/17 12/31/17 07:07 06:20 06:20 WBC 5.3 D RBC 4.00 Hgb 10.9 L Hct 34.3 L MCV 85.8 MCH 27.3 MCHC 31.8 RDW 13.4 Plt Count 412 MPV 7.9 Gran % 73.2 H Lymph % (Auto) 19.4 L Sanders % (Auto) 4.0 Eos % (Auto) 3.0 Baso % (Auto) 0.4 Gran # 3.84 Lymph # (Auto) 1.0 L Sanders # (Auto) 0.2 Eos # (Auto) 0.2 Baso # (Auto) 0.02 Sodium 141 Potassium 4.2 Chloride 108 H Carbon Dioxide 25 Anion Gap 13 BUN 12 Creatinine 0.8 Est GFR ( Amer) > 60 Est GFR (Non-Af Amer) > 60 Random Glucose 111 H Calcium 8.5 Total Bilirubin 0.2 AST 24 ALT 9 Alkaline Phosphatase 67 Total Protein 6.2 Albumin 3.0 Globulin 3.1 Albumin/Globulin Ratio 1.0 L RPR HIV 1&2 Ag/Ab, 4th Gen Nonreactive 12/31/17 07:30 WBC RBC Hgb Hct MCV MCH MCHC RDW Plt Count MPV Gran % Lymph % (Auto) Sanders % (Auto) Eos % (Auto) Baso % (Auto) Gran # Lymph # (Auto) Sanders # (Auto) Eos # (Auto) Baso # (Auto) Sodium Potassium Chloride Carbon Dioxide Anion Gap BUN Creatinine Est GFR ( Amer) Est GFR (Non-Af Amer) Random Glucose Calcium Total Bilirubin AST ALT Alkaline Phosphatase Total Protein Albumin Globulin Albumin/Globulin Ratio RPR Nonreactive HIV 1&2 Ag/Ab, 4th Gen
[2017-12-30 07:04] LABS: BASO # 0.02 K/mm3 (0.0-2.0); BASO % 0.2 % (0.0-3.0); EOS # 0.2 (0.0-0.7); EOS % 1.9 % (1.5-5.0); GRAN # 6.02 (1.4-6.5); GRAN % 70.4 % (50.0-68.0); LYMPH # 1.8 (1.2-3.4); LYMPH % 21.1 % (22.0-35.0); MEAN CELL VOLUME 85.3 fl (80.0-105.0); MEAN CORPUSCULAR HEMOGLOBIN 27.5 pg (25.0-35.0); MEAN CORPUSCULAR HGB CONC 32.3 g/dl (31.0-37.0); MONO # 0.6 (0.1-0.6); MONO % 6.4 % (1.0-6.0); RED CELL DISTRIBUTION WIDTH 13.5 % (11.5-14.5); WHITE BLOOD COUNT 8.6 10^3/ul (4.5-11.0)
[2017-12-30 07:51] LABS: ALBUMIN 3.3 g/dL (3.0-4.8); ALT/SGPT 13 U/L (7-56); AST/SGOT 26 U/L (14-36); BLOOD UREA NITROGEN 9 mg/dL (7-21); CALCIUM 8.9 mg/dL (8.4-10.5); GFR AFRICAN-AMERICAN > 60; GFR NON-AFRICAN AMERICAN > 60
[2017-12-30 08:00] VITALS: RESP 20
--- NOTE | 2017-12-30 08:54 | CP.PCM.PN ---
Subjective - Date & Time of Evaluation Date of Evaluation: 12/30/17 Time of Evaluation: 07:10 - Subjective Subjective: PGY-1 Surgery Progress Note for Dr. Ricardo Heath Patient seen and examined. Patient reports tenderness in the site of the right axillary wound. No other complaints at this time. Objective - Vital Signs/Intake and Output Vital Signs (last 24 hours): Temp Pulse Resp BP Pulse Ox 98.4 F 79 20 111/66 97 12/30/17 06:00 12/30/17 06:00 12/30/17 06:00 12/30/17 06:00 12/30/17 06:00 - Medications Medications: Current Medications Acetaminophen (Tylenol 325mg Tab) 650 mg PO Q6H PRN PRN Reason: Pain, moderate (4-7) Heparin Sodium (Porcine) (Heparin) 5,000 units SC Q8 VLADIMIR PRN Reason: Protocol Last Admin: 12/30/17 08:42 Dose: 5,000 units Cefepime HCl (Maxipime 1gm) 1 gm in 100 mls @ 100 mls/hr IVPB Q8 VLADIMIR PRN Reason: Protocol Stop: 01/08/18 14:01 Ketorolac Tromethamine (Toradol) 30 mg IVP Q6H PRN PRN Reason: Pain, severe (8-10) Last Admin: 12/30/17 08:42 Dose: 30 mg Linezolid (Zyvox) 600 mg PO BID VLADIMIR PRN Reason: Protocol Stop: 01/08/18 10:01 - Labs Labs: 12/30/17 06:30 12/30/17 06:30 - Constitutional Appears: No Acute Distress - Head Exam Head Exam: ATRAUMATIC, NORMOCEPHALIC - Eye Exam Eye Exam: EOMI, Normal appearance - ENT Exam ENT Exam: Mucous Membranes Moist - Respiratory Exam Respiratory Exam: NORMAL BREATHING PATTERN. absent: Respiratory Distress - Cardiovascular Exam Cardiovascular Exam: +S1, +S2 - GI/Abdominal Exam GI & Abdominal Exam: Soft, Normal Bowel Sounds. absent: Tenderness - Extremities Exam Additional comments: Right axilla: previous I&D incision with packing in place draining purulent material, new approximately 5 x 4 cm raised area with indurance and without fluctuance - Neurological Exam Neurological Exam: Alert, Awake, Oriented x3 - Psychiatric Exam Psychiatric exam: Normal Affect, Normal Mood - Skin Skin Exam: Dry, Warm Assessment and Plan - Assessment and Plan (Free Text) Assessment: This is a 22 year female with right axillary abscess that was initially incised and drained on 12/15/17. Plan: Failed outpatient therapy Antibiotics per ID Will revise the I&D done by the ED later today after reviewing the ultrasound Further recs per Dr. Ricardo Brown PGY-1
--- NOTE | 2017-12-30 09:43 | US ---
PROCEDURE: HISTORY: R axilla, evaluate for abscess history is 22-year-old female with painful lump in right axilla for 2 weeks os draining bloody possible 1 week. COMPARISON: None TECHNIQUE: Real-time scanning the right axilla was performed. Doppler was applied. FINDINGS: Patient's lump corresponds with a 5.1 x 1.9 by a 5.3 cm hypo echoic "Mass" . There are mobile punctate specular echoes within it central hypoechoic or and mobile contents are inferred. . 1.3 cm peripheral rim of increased echogenicity and a peripheral rim of increased vascularity is noted. Although per the mammography technologist and obvious draining sinus tract is noted through which bloody pus exudes, this is not apparent on these images. Despite search 4 regional lymph nodes no such identifiable lymph nodes could be demonstrated at this setting. IMPRESSION: Given the clinical context - the appearance of the right axillary mass corresponding to patient's painful lump is most consistent with an abscess. No separate normal or separate morphologically abnormal appearing identifiable lymph nodes appreciated.
[2017-12-30] MEDS: Cefepime 1gm in NS 100ml 1 GM/100 ML BAG IVPB SCH ×2 (14:20→21:10)
--- NOTE | 2017-12-30 14:33 | CP.PCM.PN ---
<MaximeReji thompson - Last Filed: 12/30/17 14:29> Subjective - Date & Time of Evaluation Date of Evaluation: 12/30/17 Time of Evaluation: 14:29 - Subjective Subjective: Patient seen and examined at bedside. Complaining of pain at the I/D site. No fevers or chills. Still draining. No other complaints at this time. Objective - Vital Signs/Intake and Output Vital Signs (last 24 hours): Temp Pulse Resp BP Pulse Ox 98.4 F 79 20 111/66 97 12/30/17 06:00 12/30/17 06:00 12/30/17 06:00 12/30/17 06:00 12/30/17 06:00 - Medications Medications: Current Medications Acetaminophen (Tylenol 325mg Tab) 650 mg PO Q6H PRN PRN Reason: Pain, moderate (4-7) Heparin Sodium (Porcine) (Heparin) 5,000 units SC Q8 VLADIMIR PRN Reason: Protocol Last Admin: 12/30/17 14:20 Dose: 5,000 units Cefepime HCl (Maxipime 1gm) 1 gm in 100 mls @ 100 mls/hr IVPB Q8 VLADIMIR PRN Reason: Protocol Stop: 01/08/18 14:01 Last Admin: 12/30/17 14:20 Dose: 100 mls/hr Ketorolac Tromethamine (Toradol) 30 mg IVP Q6H PRN PRN Reason: Pain, severe (8-10) Last Admin: 12/30/17 14:20 Dose: 30 mg Linezolid (Zyvox) 600 mg PO BID VLADIMIR PRN Reason: Protocol Stop: 01/08/18 10:01 Last Admin: 12/30/17 09:57 Dose: 600 mg - Labs Labs: 12/30/17 06:30 12/30/17 06:30 - Constitutional Appears: Well - Head Exam Head Exam: ATRAUMATIC, NORMAL INSPECTION, NORMOCEPHALIC - Eye Exam Eye Exam: EOMI, Normal appearance, PERRL Pupil Exam: NORMAL ACCOMODATION, PERRL - ENT Exam ENT Exam: Mucous Membranes Moist, Normal Exam - Neck Exam Neck Exam: Full ROM, Normal Inspection. absent: Lymphadenopathy - Respiratory Exam Respiratory Exam: Clear to Ausculation Bilateral, NORMAL BREATHING PATTERN - Cardiovascular Exam Cardiovascular Exam: REGULAR RHYTHM, +S1, +S2. absent: Murmur - GI/Abdominal Exam GI & Abdominal Exam: Soft, Normal Bowel Sounds. absent: Tenderness - Extremities Exam Extremities Exam: Full ROM, Normal Capillary Refill, Normal Inspection. absent : Joint Swelling, Pedal Edema - Back Exam Back Exam: NORMAL INSPECTION - Neurological Exam Neurological Exam: Alert, Awake, CN II-XII Intact, Normal Gait, Oriented x3 - Psychiatric Exam Psychiatric exam: Normal Affect, Normal Mood - Skin Skin Exam: Dry, Intact, Normal Color, Warm Assessment and Plan (1) Hidradenitis suppurativa Assessment & Plan: s/p I/D w/ 08/19" iodoform US shows collection still draining currently Zyvox and Maxipime tylenol and toradol for pain will add pepcid as patient is taking NSAID multiple times per day Add probiotic chest CT - f/u Status: Acute (2) Prophylactic measure Assessment & Plan: Heparin SC Q8H Pepcid SCD Status: Acute <Mairs Sung - Last Filed: 12/31/17 14:49> Objective - Vital Signs/Intake and Output Vital Signs (last 24 hours): Temp Pulse Resp BP Pulse Ox 98.3 F 55 L 20 100/50 L 96 12/31/17 06:00 12/31/17 06:00 12/31/17 06:00 12/31/17 06:00 12/31/17 06:00 Intake and Output: 12/31/17 12/31/17 06:59 18:59 Intake Total 880 480 Balance 880 480 - Labs Labs: 12/31/17 06:20 12/31/17 06:20 Attending/Attestation - Attestation I have personally seen and examined this patient.: Yes I have fully participated in the care of the patient.: Yes I have reviewed all pertinent clinical information, including history, physical exam and plan: Yes Notes (Text): 12/31/17 14:48 Medical record note made by the resident after discussion with my direction and input after the patient was personally seen and examined by me. I have reviewed the chart and agree that the record accurately reflects by personal performance of the history, physical exam, data review, and medical decision-making, in the course for the patient. I have also personally directed the plan of care.
--- NOTE | 2017-12-30 16:07 | CT ---
PROCEDURE: CT Chest without contrast HISTORY: right axillary mass COMPARISON: Ultrasound soft tissue right axilla -Dec 30 2017 noted TECHNIQUE: Contiguous axial images were obtained through the chest without intravenous contrast enhancement. Sagittal and coronal reconstructions were performed. Radiation dose (DLP): 490 mGy-cm. This CT exam was performed using one or more of the following dose reduction techniques: Automated exposure control, adjustment of the mA and/or kV according to patient size, and/or use of iterative reconstruction technique. FINDINGS: LUNGS: Clear lungs. Visualized airway clear. MEDIASTINUM: Unremarkable thoracic aorta. No aneurysm. Normal sized heart. Main pulmonary artery unremarkable. No vascular congestion. No lymphadenopathy. PLEURA: No pleural fluid. No pneumothorax. BONES: No fracture. No destructive lesion. Scoliosis noted. UPPER ABDOMEN: Grossly unremarkable. OTHER FINDINGS: Patient's clinically obvious draining right axillary lump/mass compatible with a right axillary abscess per this same-day ultrasound exam of it is only partially visualized on this exam. Nonspecific partial visual inclusion of this right axillary collection is suggested. Deep to the right axilla closer to the chest wall proper for a few benign hyperplastic appearing lymph nodes with their fatty hilum is maintained. These measure maximally approximately 1.8 and 1.7 cm in size. A few left axillary lymph nodes are smaller in size are also noted. IMPRESSION: Patient's clinically obvious right axillary mass- clinically reported as draining some blood and pus -is only partially visualized on this exam. Per the same-day right axillary ultrasound of it, the ultrasound appearance was compatible with a right axillary abscess -please note that report regarding its its size. Although the ultrasound did not demonstrate clear right axillary lymph nodes - the CT does show the bilateral axillary lymph nodes a few were slightly larger on the right side. There is fatty hilum is a are maintained on this exam. CT appearance of these right axillary (and left axillary lymph nodes are compatible with hyperplastic changes in axillary lymph nodes. No pulmonary or mediastinal pathology noted.
[2017-12-30 19:17] VITALS: TEMP 98.3
--- NOTE | 2017-12-31 02:22 | CON ---
DATE: 12/30/2017 LOCATIONS: The patient is seen in room 566, bed #2 earlier this morning. CHIEF COMPLAINT: Right arm axillary abscess times several days. HISTORY OF PRESENT ILLNESS: This is a 22-year-old female with obesity with a BMI of 35. No significant past medical history, who has had multiple hospital visits in the emergency room because of the right arm axilla/arm pit infection which required antibiotics, was given antibiotics Keflex and Bactrim and had a incision and drainage on another emergency room visit and she states she axilla and that is where here problem started and developed the infection and folliculitis and which progressively worse and it became hardened. REVIEW OF SYSTEMS: Reveals the patient has no fevers, no chills. No nausea, no vomiting. No chest pain. PAST MEDICAL HISTORY: Significant for obesity. PAST SURGICAL HISTORY: Noncontributory. MEDICATIONS: The patient normally does not take any medications. Recently, had been on Bactrim and Keflex. SOCIAL HISTORY: No travel history. Does not have a boyfriend. She is also complaining of chronic suprapubic lesions and groin lesions has been there for some time. She states she has had them for many years. PHYSICAL EXAMINATION: VITAL SIGNS: Temperature is 98, pulse of 94-98 and respiratory rate of 18, blood pressure is 111/70. HEENT: Examination of HEENT is unremarkable. NECK: Supple. LUNGS: Have decreased breath sounds. HEART: Normal S1 and S2. ABDOMEN: Soft, nontender. No organomegaly. No rebound or guarding or masses. EXTREMITIES: Examination of the right axilla revealed indurated mass and there is incision and there is packing. No discharge, has mild erythema, and there is no lymph nodes appreciated. LABORATORY EXAMINATION: Reveals a white count of 9.3, hemoglobin of 11, platelets of 440 and the chemistries reveals are normal creatinine and BUN and microbiology is pending. History and physical examination is noted. The patient also had an ultrasound of the right axilla which reveals appearance of right axillary mass corresponding the patient lump consistent with an abscess and note is reviewed. Examination of suprapubic areas also reveals chronic dried lesions and no active lesions. ASSESSMENT/PLAN: This is a 22-year-old female with obesity, BMI of 35, now with a right axillary abscess secondary to shaving, hidradenitis suppurativa is in the differential. The patient has been on antibiotics as outpatient and we will treat the patient with Zyvox and cefepime. She was given vancomycin last night, had red man syndrome and we will check on the wound cultures. We will also order an HIV test and order a CAT scan of the chest, no contrast and we will make further recommendations upon availability of initial results. We will also order a workup for syphilis. Mati Melendez MD
[2017-12-31] MEDS: Cefepime 1gm in NS 100ml 1 GM/100 ML BAG IVPB SCH (06:59)
[2017-12-31 07:02] LABS: BASO # 0.02 K/mm3 (0.0-2.0); BASO % 0.4 % (0.0-3.0); EOS # 0.2 (0.0-0.7); GRAN # 3.84 (1.4-6.5); GRAN % 73.2 % (50.0-68.0); HEMOGLOBIN 10.9 g/dL (12.0-16.0); LYMPH % 19.4 % (22.0-35.0); MEAN CELL VOLUME 85.8 fl (80.0-105.0); MEAN CORPUSCULAR HEMOGLOBIN 27.3 pg (25.0-35.0); MEAN CORPUSCULAR HGB CONC 31.8 g/dl (31.0-37.0); MEAN PLATELET VOLUME 7.9 fl (7.0-11.0); MONO # 0.2 (0.1-0.6); RED CELL DISTRIBUTION WIDTH 13.4 % (11.5-14.5); WHITE BLOOD COUNT 5.3 10^3/ul (4.5-11.0)
[2017-12-31 07:14] LABS: ALT/SGPT 9 U/L (7-56); AST/SGOT 24 U/L (14-36); BLOOD UREA NITROGEN 12 mg/dL (7-21); CALCIUM 8.5 mg/dL (8.4-10.5); GFR AFRICAN-AMERICAN > 60; GFR NON-AFRICAN AMERICAN > 60
[2017-12-31 08:19] VITALS: BP 100/50; PULSE 55; O2SAT 96
--- NOTE | 2017-12-31 10:49 | CP.PCM.PN ---
Subjective - Date & Time of Evaluation Date of Evaluation: 12/31/17 Time of Evaluation: 07:30 - Subjective Subjective: Patient seen and examined at bedside. Patient denies any fevers, chills, and pain in the right axilla well controlled on current PO medication. Packing change was performed with wet to dry dressing instead of iodoform packing at bedside instructing patient how to do it. Patient expresses comfort and confidence in performing dressing changes at home. Objective - Vital Signs/Intake and Output Vital Signs (last 24 hours): Temp Pulse Resp BP Pulse Ox 98.3 F 55 L 20 100/50 L 96 12/31/17 06:00 12/31/17 06:00 12/31/17 06:00 12/31/17 06:00 12/31/17 06:00 Intake and Output: 12/31/17 12/31/17 06:59 18:59 Intake Total 880 Balance 880 - Medications Medications: Current Medications Acetaminophen (Tylenol 325mg Tab) 650 mg PO Q6H PRN PRN Reason: Pain, moderate (4-7) Heparin Sodium (Porcine) (Heparin) 5,000 units SC Q8 VLADIMIR PRN Reason: Protocol Last Admin: 12/31/17 06:33 Dose: Not Given Cefepime HCl (Maxipime 1gm) 1 gm in 100 mls @ 100 mls/hr IVPB Q8 VLADIMIR PRN Reason: Protocol Stop: 01/08/18 14:01 Last Admin: 12/31/17 06:59 Dose: 100 mls/hr Ketorolac Tromethamine (Toradol) 30 mg IVP Q6H PRN PRN Reason: Pain, severe (8-10) Last Admin: 12/31/17 06:59 Dose: 30 mg Linezolid (Zyvox) 600 mg PO BID VLADIMIR PRN Reason: Protocol Stop: 01/08/18 10:01 Last Admin: 12/31/17 09:56 Dose: 600 mg - Labs Labs: 12/31/17 06:20 12/31/17 06:20 - Constitutional Appears: Well, Non-toxic, No Acute Distress - Head Exam Head Exam: ATRAUMATIC, NORMOCEPHALIC - Eye Exam Eye Exam: Normal appearance. absent: Conjunctival injection, Scleral icterus - ENT Exam ENT Exam: Mucous Membranes Moist, Normal Oropharynx - Respiratory Exam Respiratory Exam: NORMAL BREATHING PATTERN. absent: Accessory Muscle Use, Respiratory Distress - Cardiovascular Exam Cardiovascular Exam: RRR - GI/Abdominal Exam GI & Abdominal Exam: absent: Distended - Extremities Exam Additional comments: right axilary abscess with decreased erythema, active serous drainage, decreased induration - Neurological Exam Neurological Exam: Alert, Awake, Oriented x3 - Psychiatric Exam Psychiatric exam: Normal Affect, Normal Mood - Skin Skin Exam: Dry, Intact, Normal Color, Warm Additional comments: except as noted above Assessment and Plan - Assessment and Plan (Free Text) Assessment: 22F POD#1 s/p revision of prior incision and drainage for right axillary abscess Plan: Patient is clear for discharge on PO antibiotics as recommended by ID Patient should performed daily wet to dry packing changes with 4x4 gauze and normal saline. Patient was educated on this and expressed understanding and comfort with the process. Follow up in Dr. Heath's office in [address] Heath's office or come to ER with fever >100.4, or any other concerning symptoms. Thank you for this consult Discussed with Dr. Kumar Dai, PGy2
--- NOTE | 2017-12-31 13:39 | CP.PCM.DIS ---
<Reji Hackett - Last Filed: 12/31/17 13:58> Provider - Provider Date of Admission: 12/29/17 20:52 Attending physician: Maris Sung MD Primary care physician: Venkat Mariscal, DANE, ENROLLED NURSE Consults: Surgery: Zuleika Heath Time Spent in preparation of Discharge (in minutes): 45 Diagnosis - Discharge Diagnosis (1) Hidradenitis suppurativa Status: Acute (2) Prophylactic measure Status: Acute Hospital Course - Lab Results Lab Results: Micro Results 12/30/17 14:45 Abscess - Axilla Gram Stain - Final Most Recent Lab Values WBC 5.3 10^3/ul (4.5-11.0) D 12/31/17 06:20 RBC 4.00 10^6/uL (3.5-6.1) 12/31/17 06:20 Hgb 10.9 g/dL (12.0-16.0) L 12/31/17 06:20 Hct 34.3 % (36.0-48.0) L 12/31/17 06:20 MCV 85.8 fl (80.0-105.0) 12/31/17 06:20 MCH 27.3 pg (25.0-35.0) 12/31/17 06:20 MCHC 31.8 g/dl (31.0-37.0) 12/31/17 06:20 RDW 13.4 % (11.5-14.5) 12/31/17 06:20 Plt Count 412 10^3/uL (120.0-450.0) 12/31/17 06:20 MPV 7.9 fl (7.0-11.0) 12/31/17 06:20 Gran % 73.2 % (50.0-68.0) H 12/31/17 06:20 Lymph % (Auto) 19.4 % (22.0-35.0) L 12/31/17 06:20 Sauk % (Auto) 4.0 % (1.0-6.0) 12/31/17 06:20 Eos % (Auto) 3.0 % (1.5-5.0) 12/31/17 06:20 Baso % (Auto) 0.4 % (0.0-3.0) 12/31/17 06:20 Gran # 3.84 (1.4-6.5) 12/31/17 06:20 Lymph # (Auto) 1.0 (1.2-3.4) L 12/31/17 06:20 Sauk # (Auto) 0.2 (0.1-0.6) 12/31/17 06:20 Eos # (Auto) 0.2 (0.0-0.7) 12/31/17 06:20 Baso # (Auto) 0.02 K/mm3 (0.0-2.0) 12/31/17 06:20 Sodium 141 mmol/L (132-148) 12/31/17 06:20 Potassium 4.2 mmol/L (3.6-5.0) 12/31/17 06:20 Chloride 108 mmol/L (98-107) H 12/31/17 06:20 Carbon Dioxide 25 mmol/L (21-33) 12/31/17 06:20 Anion Gap 13 (10-20) 12/31/17 06:20 BUN 12 mg/dL (7-21) 12/31/17 06:20 Creatinine 0.8 mg/dl (0.7-1.2) 12/31/17 06:20 Est GFR ( Amer) > 60 12/31/17 06:20 Est GFR (Non-Af Amer) > 60 12/31/17 06:20 Random Glucose 111 mg/dL (70-110) H 12/31/17 06:20 Calcium 8.5 mg/dL (8.4-10.5) 12/31/17 06:20 Total Bilirubin 0.2 mg/dL (0.2-1.3) 12/31/17 06:20 AST 24 U/L (14-36) 12/31/17 06:20 ALT 9 U/L (7-56) 12/31/17 06:20 Alkaline Phosphatase 67 U/L (38-126) 12/31/17 06:20 Total Protein 6.2 g/dL (5.8-8.3) 12/31/17 06:20 Albumin 3.0 g/dL (3.0-4.8) 12/31/17 06:20 Globulin 3.1 gm/dL 12/31/17 06:20 Albumin/Globulin Ratio 1.0 (1.1-1.8) L 12/31/17 06:20 HIV 1&2 Ag/Ab, 4th Gen Nonreactive (Nonreactive) 12/30/17 07:07 - Hospital Course Hospital Course: On Admission: 22 year old female with no significant PMH initally presented to ED a few days ago with painful abscess under her right arm. She states that it appeared about 2 months ago and she noticed it starting to drain purulent material about 3 weeks ago. Patient says it is painful. In previous ED visit patient had I&D with iodoform packing. Patient returned to ED 2 days later and continue to drain purlent material, packing was changed and patient was asked to return in 2 days. At that time she was also given keflex and bactrim. She returned today with continued purulent drainage and pain despite PO abx and I&D. Patient says she had this for the first time 3-4 years ago, at that time she popped it and it went away. Patient reports subjective fever and chills. She denies headache, dizziness, chest pain, sob, abd pain, n/v, diarrhea, dysuria, numbness or tingling, or any other complaint. Hospital Course: Abscess was I/D by surgery. Wet to dry packing. US did not identify any other collections. Patient was placed on Maxipime and Zyvox while inpatient. Was discharged on Doxy and Levoquin for 7 days as outpatient with dressing change instruction and instruction to follow up with Dr. Heath as outpatient. She was instructed to eat yogurt daily as a probiotic. She was shown how to do the dressing changed by the surgery resident. She had a breast US done during this admission that was benign (BIRADS 2). Discharge Exam - Head Exam Head Exam: ATRAUMATIC, NORMOCEPHALIC - Eye Exam Eye Exam: EOMI, Normal appearance, PERRL Pupil Exam: NORMAL ACCOMODATION, PERRL - Neck Exam Additional comments: Breast Exam: Fullness of the RUQ and RLQ. No distinct nodules noted. Prompted US of breast which was negative. BIRADS 2 - Respiratory Exam Respiratory Exam: Clear to PA & Lateral, NORMAL BREATHING PATTERN, UNREMARKABLE - GI/Abdominal Exam GI & Abdominal Exam: Normal Bowel Sounds, Soft, Unremarkable. absent: Distended , Tenderness - Neurological Exam Neurological exam: Alert, CN II-XII Intact, Normal Gait, Oriented x3, Reflexes Normal - Psychiatric Exam Psychiatric exam: Normal Affect, Normal Mood - Skin Skin Exam: Dry, Intact, Normal Color, Warm Discharge Plan - Discharge Medications Prescriptions: Doxycycline Monohydrate 100 mg PO BID 7 Days tablet levoFLOXacin [Levaquin] 500 mg PO DAILY 7 Days tab - Follow Up Plan Condition: STABLE Disposition: HOME/ ROUTINE Instructions: Hidradenitis Suppurativa, Surgical Wound (DC), Wound Care (DC), Diet and Health Additional Instructions: Please change dressing daily, wet to dry as instructed at bedside. Please follow up with Dr. Heath in his office at [facility]. I have attached his office information. Please call to make an appointment. Referrals: Joey Heath MD [Staff Provider] - Venkat Mariscal DNP, APN [Primary Care Provider] - <Maris Sung - Last Filed: 12/31/17 14:56> Provider - Provider Date of Admission: 12/29/17 20:52 Attending physician: Maris Sung MD Primary care physician: Venkat Mariscal DNP, APN Time Spent in preparation of Discharge (in minutes): 35 Hospital Course - Lab Results Lab Results: Micro Results 12/30/17 14:45 Abscess - Axilla Gram Stain - Final Most Recent Lab Values WBC 5.3 10^3/ul (4.5-11.0) D 12/31/17 06:20 RBC 4.00 10^6/uL (3.5-6.1) 12/31/17 06:20 Hgb 10.9 g/dL (12.0-16.0) L 12/31/17 06:20 Hct 34.3 % (36.0-48.0) L 12/31/17 06:20 MCV 85.8 fl (80.0-105.0) 12/31/17 06:20 MCH 27.3 pg (25.0-35.0) 12/31/17 06:20 MCHC 31.8 g/dl (31.0-37.0) 12/31/17 06:20 RDW 13.4 % (11.5-14.5) 12/31/17 06:20 Plt Count 412 10^3/uL (120.0-450.0) 12/31/17 06:20 MPV 7.9 fl (7.0-11.0) 12/31/17 06:20 Gran % 73.2 % (50.0-68.0) H 12/31/17 06:20 Lymph % (Auto) 19.4 % (22.0-35.0) L 12/31/17 06:20 Sauk % (Auto) 4.0 % (1.0-6.0) 12/31/17 06:20 Eos % (Auto) 3.0 % (1.5-5.0) 12/31/17 06:20 Baso % (Auto) 0.4 % (0.0-3.0) 12/31/17 06:20 Gran # 3.84 (1.4-6.5) 12/31/17 06:20 Lymph # (Auto) 1.0 (1.2-3.4) L 12/31/17 06:20 Sauk # (Auto) 0.2 (0.1-0.6) 12/31/17 06:20 Eos # (Auto) 0.2 (0.0-0.7) 12/31/17 06:20 Baso # (Auto) 0.02 K/mm3 (0.0-2.0) 12/31/17 06:20 Sodium 141 mmol/L (132-148) 12/31/17 06:20 Potassium 4.2 mmol/L (3.6-5.0) 12/31/17 06:20 Chloride 108 mmol/L (98-107) H 12/31/17 06:20 Carbon Dioxide 25 mmol/L (21-33) 12/31/17 06:20 Anion Gap 13 (10-20) 12/31/17 06:20 BUN 12 mg/dL (7-21) 12/31/17 06:20 Creatinine 0.8 mg/dl (0.7-1.2) 12/31/17 06:20 Est GFR ( Amer) > 60 12/31/17 06:20 Est GFR (Non-Af Amer) > 60 12/31/17 06:20 Random Glucose 111 mg/dL (70-110) H 12/31/17 06:20 Calcium 8.5 mg/dL (8.4-10.5) 12/31/17 06:20 Total Bilirubin 0.2 mg/dL (0.2-1.3) 12/31/17 06:20 AST 24 U/L (14-36) 12/31/17 06:20 ALT 9 U/L (7-56) 12/31/17 06:20 Alkaline Phosphatase 67 U/L (38-126) 12/31/17 06:20 Total Protein 6.2 g/dL (5.8-8.3) 12/31/17 06:20 Albumin 3.0 g/dL (3.0-4.8) 12/31/17 06:20 Globulin 3.1 gm/dL 12/31/17 06:20 Albumin/Globulin Ratio 1.0 (1.1-1.8) L 12/31/17 06:20 HIV 1&2 Ag/Ab, 4th Gen Nonreactive (Nonreactive) 12/30/17 07:07 Attending/Attestation - Attestation I have personally seen and examined this patient.: Yes I have fully participated in the care of the patient.: Yes I have reviewed all pertinent clinical information, including history, physical exam and plan: Yes Notes (Text): 12/31/17 14:53 Medical record note made by the resident after discussion with my direction and input after the patient was personally seen and examined by me. I have reviewed the chart and agree that the record accurately reflects by personal performance of the history, physical exam, data review, and medical decision-making, in the course for the patient. I have also personally directed the plan of care. 22 yrs old obese female with right axillary abscess probably with hidradenitis suppurativa S/P I and D 2 times, wound cultures are negative.Patient is afebrile. Case was discussed with surgery team and ID attending.Patient will be discharged home on oral levofloxacin and doxycycline for 7 days, along with dressing instructions.She will follow up with PCP and surgery as out patient. Management plan was discussed in detail with patient. Education was provided.
--- NOTE | 2017-12-31 13:39 | US ---
HISTORY: December 30, 2017. Soft tissue ultrasound right axilla documenting complex fluid collection/ mass known to be abscess 1.9 x 5.3 x 5.1 cm. TECHNIQUE: Sonographic evaluation of both breast was performed. FINDINGS: RIGHT BREAST: Re- demonstration of debris and fluid filled collection right axilla 1.8 x 5.8 by 4.4 cm hypervascular periphery consistent with acute infectious/inflammatory process. No axillary lymphadenopathy identified. LEFT BREAST: No solid or cystic masses identified. No axillary lymphadenopathy identified. IMPRESSION: Documentation of right axillary abscess approximately stable size and configuration compared to the prior study 12/30/2017 at 09:11. BIRADS: BIRADS 2 Benign findings. Recommendation: Follow-up to resolution.
--- NOTE | 2017-12-31 14:33 | CP.PCM.PN ---
Subjective - Date & Time of Evaluation Date of Evaluation: 12/31/17 Time of Evaluation: 12:00 - Subjective Subjective: Patient feeling better, no fevers, less pain in the axillary areas. Objective - Vital Signs/Intake and Output Vital Signs (last 24 hours): Temp Pulse Resp BP Pulse Ox 98.3 F 55 L 20 100/50 L 96 12/31/17 06:00 12/31/17 06:00 12/31/17 06:00 12/31/17 06:00 12/31/17 06:00 Intake and Output: 12/31/17 12/31/17 06:59 18:59 Intake Total 880 Balance 880 - Medications Medications: Current Medications Acetaminophen (Tylenol 325mg Tab) 650 mg PO Q6H PRN PRN Reason: Pain, moderate (4-7) Heparin Sodium (Porcine) (Heparin) 5,000 units SC Q8 VLADIMIR PRN Reason: Protocol Last Admin: 12/31/17 06:33 Dose: Not Given Cefepime HCl (Maxipime 1gm) 1 gm in 100 mls @ 100 mls/hr IVPB Q8 VLADIMIR PRN Reason: Protocol Stop: 01/08/18 14:01 Last Admin: 12/31/17 06:59 Dose: 100 mls/hr Ketorolac Tromethamine (Toradol) 30 mg IVP Q6H PRN PRN Reason: Pain, severe (8-10) Last Admin: 12/31/17 06:59 Dose: 30 mg Linezolid (Zyvox) 600 mg PO BID VLADIMIR PRN Reason: Protocol Stop: 01/08/18 10:01 Last Admin: 12/31/17 09:56 Dose: 600 mg - Labs Labs: 12/31/17 06:20 12/31/17 06:20 - Constitutional Appears: Chronically Ill - Head Exam Head Exam: NORMAL INSPECTION - ENT Exam ENT Exam: Mucous Membranes Moist - Neck Exam Neck Exam: absent: Lymphadenopathy, Meningismus - Respiratory Exam Respiratory Exam: Decreased Breath Sounds. absent: Rales - Cardiovascular Exam Cardiovascular Exam: +S1, +S2 - GI/Abdominal Exam GI & Abdominal Exam: Soft. absent: Tenderness Assessment and Plan - Assessment and Plan (Free Text) Plan: Assessment right axillary abscess probably with hidradenitis suppurativa S/P I and D obesity with BMI 35 Plan On Zyvox and Cefepime day 2; cultures have been negative so far; can switch to PO Doxycycline and Levaquin for another 7 days with outpatient follow up with PMD HIV test is non-reactive
--- NOTE | 2017-12-31 16:50 | PCM.SURG1 ---
Surgeon's Initial Post Op Note - Surgeon's Notes Surgeon: Dr. Heath Brineyard Supervisor: Mirna PGY1, Suhas PGY2 Type of Anesthesia: Local Pre-Operative Diagnosis: Right Axilla Abscess Operative Findings: Written consent obtained and on chart. Patient prepped with betadine and placed supine. Draped in the usual sterile fashion. Approximately 13mL of 1% Lidocaine was used for local anesthesia. Small incision at the axillary line extended and a cruciate incision was made. New wound culture was obtained. Small nichole clamp was used to break up any loculations. 1/4in iodoform packing was used to pack the wound. Dressed with sterile gauze. Patient tolerated procedure well. No immediate complications noted. Post-Operative Diagnosis: same Operation Performed: Bedside Incision and drainage of right axillary abscess Specimen/Specimens Removed: wound culture Estimated Blood Loss: EBL {In ML}: 5 Blood Products Given: N/A Drains Used: No Drains Post-Op Condition: Good Date of Surgery/Procedure: 12/30/17 Time of Surgery/Procedure: 15:00
== END 2017-12-31 14:42 | disposition home or self-care (01) ==
LOC: ED 18:12 → ERH 20:52 → 5RNO 23:57
PROVIDERS: ADMIT Internal Medicine; ATTEND Internal Medicine
DX: L73.2 Hidradenitis suppurativa (principal); L02.411 Cutaneous abscess of right axilla; E66.9 Obesity, unspecified; F17.210 Nicotine dependence, cigarettes, uncomplicated
CPT/HCPCS: 10060; 36415; 71250; 76641; 76881; 80053; 85025; 86592; 86780; 87040; 87070; 87181; 87389; 96365; 96367; 96372; 96375; 96376; 99285; G0378; J0692; J0696; J1644; J1885; J7040

== ENCOUNTER 2018-08-14 15:33 | Emergency (ER) | payer MEDICAID, OTHER ==
[2018-08-14 15:33] VITALS: BMI 35.0
[2018-08-14 15:52] VITALS: RESP 18
--- NOTE | 2018-08-14 16:00 | ED PDOC ---
Arrival/HPI - General Chief Complaint: ENT Problem Time Seen by Provider: 08/14/18 15:49 Historian: Patient - History of Present Illness Narrative History of Present Illness (Text): 23 year old female with history of hearing deficits s/p recurrent otitis media presents the Emergency Department complaining of ear pain x 1 day. States she has been experiencing a throbbing pain in her right ear for the last day with associated sinus congestion. States the pain is similar to prior ear infections. Has not taken any medication for pain. Denies fevers, chills, headache, dizziness, mastoid tenderness, N/V, vision changes, tinnitus, vertigo, abdominal pain, chest pain, SOB, numbness, weakness, paresthesias, or any other associated complaints. Past Medical History - Provider Review Nursing Documentation Reviewed: Yes - Past History Past History: No Previous - Infectious Disease Hx of Infectious Diseases: None - Tetanus Immunization Tetanus Immunization: Unknown - Cardiac Hx Cardiac Disorders: No - Pulmonary Hx Respiratory Disorders: No - Neurological Hx Neurological Disorder: No - HEENT Hx HEENT Disorder: Yes Other/Comment: HEARING DEFICIT - Renal Hx Renal Disorder: No - Endocrine/Metabolic Hx Endocrine Disorders: No - Hematological/Oncological Hx Blood Disorders: No - Integumentary Hx Dermatological Disorder: No - Musculoskeletal/Rheumatological Hx Musculoskeletal Disorders: No - Gastrointestinal Hx Gastrointestinal Disorders: No - Genitourinary/Gynecological Hx Genitourinary Disorders: Yes Other/Comment: AB - Psychiatric Hx Psychophysiologic Disorder: No Hx Substance Use: No - Surgical History Other/Comment: AB - Anesthesia Hx Anesthesia: No Family/Social History - Physician Review Nursing Documentation Reviewed: Yes Family/Social History: No Known Family HX Smoking Status: Heavy Smoker > 10 Cigarettes Daily Hx Alcohol Use: No Hx Substance Use: No Allergies/Home Meds Allergies/Adverse Reactions: Allergies vancomycin Allergy (Verified 08/14/18 15:50) ITCHING Review of Systems - Physician Review All systems were reviewed & negative as marked: Yes - Review of Systems Constitutional: Normal. absent: Fevers Eyes: Normal. absent: Vision Changes, Photophobia ENT: Sinus Congestion, Other (Right ear pain). absent: Epistaxis Respiratory: Normal. absent: SOB, Cough Cardiovascular: Normal. absent: Chest Pain, Palpitations, Syncope Gastrointestinal: Normal. absent: Abdominal Pain, Nausea, Vomiting Genitourinary Female: Normal. absent: Dysuria, Frequency Musculoskeletal: Normal. absent: Back Pain, Neck Pain Skin: Normal. absent: Rash, Cellulitis Neurological: Normal. absent: Headache, Dizziness, Disequilibrium Endocrine: Normal Hemo/Lymphatic: Normal Psychiatric: Normal Physical Exam Vital Signs Reviewed: Yes Vital Signs Temp Pulse Resp BP Pulse Ox 08/14/18 15:47 99.4 F 95 H 18 143/87 98 Temperature: Afebrile Blood Pressure: Normal Pulse: Regular Respiratory Rate: Normal Appearance: Positive for: Well-Appearing, Non-Toxic, Comfortable Pain Distress: None Mental Status: Positive for: Alert and Oriented X 3 - Systems Exam Head: Present: Atraumatic, Normocephalic Pupils: Present: PERRL Extroacular Muscles: Present: EOMI Conjunctiva: Present: Normal Ears: Present: Normal Canal, Other (Right TM dull, mildly erythematous. Left TM normal. Fluid behind both TM. No mastoid tenderness or bogginess bilaterally.) Mouth: Present: Moist Mucous Membranes Pharnyx: Present: Normal. No: ERYTHEMA, EXUDATE, TONSILS ENLARGED Nose (External): Present: Atraumatic Nose (Internal): Present: Normal Inspection Neck: Present: Normal Range of Motion. No: Meningeal Signs, MIDLINE TENDERNESS, Lymphadenopathy Respiratory/Chest: Present: Clear to Auscultation, Good Air Exchange. No: Respiratory Distress, Accessory Muscle Use Cardiovascular: Present: Regular Rate and Rhythm, Normal S1, S2, Peripheal Pulses Present. No: Murmurs Abdomen: No: Tenderness, Distention, Peritoneal Signs Upper Extremity: Present: Normal Inspection, Normal ROM, NORMAL PULSES, Neurova scularly Intact, Capillary Refill < 2s. No: Cyanosis, Edema Lower Extremity: Present: Normal ROM Neurological: Present: GCS=15, CN II-XII Intact, Speech Normal, Motor Func Grossly Intact, Normal Sensory Function, Gait Normal Skin: Present: Warm, Dry, Normal Color. No: Rashes Lymphatic: No: Cervical Adenopathy Psychiatric: Present: Alert, Oriented x 3, Normal Insight, Normal Concentration, Normal Affect, Normal Mood Medical Decision Making ED Course and Treatment: Plan of care discussed with patient, and strict instructions given regarding prescriptions, importance of follow up, and signs to return to Emergency Department, to include hearing loss, worsening pain, headache, vision changes, or any other new/worsening symptoms. Patient verbalizes understanding of discussion. Patient A&Ox3, ambulating with steady gait, stable for discharge home. Disposition/Present on Arrival - Present on Arrival Any Indicators Present on Arrival: No History of DVT/PE: No History of Uncontrolled Diabetes: No Urinary Catheter: No History of Decub. Ulcer: No History Surgical Site Infection Following: None - Disposition Have Diagnosis and Disposition been Completed?: Yes Diagnosis: Otitis media Disposition: HOME/ ROUTINE Disposition Time: 15:58 Patient Plan: Discharge Condition: STABLE Discharge Instructions (ExitCare): Ear Infections (Otitis Media) Additional Instructions: Take antibiotic every 12 hours for 10 days Followup with primary doctor within 2 days Return to ER with any new/worsening symptoms Prescriptions: Amoxicillin/Clavulanate [Augmentin 875 MG-125 MG] 1 tab PO Q12H #20 tab Referrals: Harriett Sher MD [Primary Care Provider] - Follow up with primary Forms: [facility] (Serbian), WORK NOTE
[2018-08-14 16:12] VITALS: BP 165/81; PULSE 71; TEMP 98.6; O2SAT 99
== END 2018-08-14 16:11 | disposition home or self-care (01) ==
LOC: ED 15:33
DX: H66.91 Otitis media, unspecified, right ear (principal); F17.210 Nicotine dependence, cigarettes, uncomplicated